=== PATIENT | male | born 1980 | race Caucasian/White ===

== ENCOUNTER 2024-01-20 12:36 | Outpatient (CLI) | payer OTHER, SELFPAY ==
--- NOTE | ~2024-01-20 | US_ITS ---
US scrotum doppler INDICATION: Testicular pain TECHNIQUE: Testicular sonogram utilizing grayscale and color Doppler FINDINGS: The testes are normal in size and appearance. No focal lesions are seen. The right testes measures 3.4 x 2.3 x 2.6 cm centimeters, and the left testis measures 4.1 x 2.2 x 2.6 cm cm. There ar e innumerable punctate calcifications of the testes, consistent with testicular microlithiasis. There is normal vascular flow to both testes. The right and left epididymides appear normal. There is no varicocele or hydrocele. IMPRESSION: 1. Testicular microlithiasis. Reviewed, dictated and finalized at location B.
== END 2024-01-20 12:37 | disposition home or self-care (01) ==
LOC: ANHIMG 12:39
PROVIDERS: PCP Physician Assistant Medical; Visit Provider Physician Assistant Medical
DX: N50.89 Other specified disorders of the male genital organs (principal)
CPT/HCPCS: 76870; 93976